=== PATIENT | female | born 1995 | race Hispanic/Latino ===

== ENCOUNTER → 2020-08-23 | Outpatient (CLI) | payer OTHER ==
[~2020-08-23] MED LIST: ISOVUE-370 76% 100ML VIAL As Ordered ONE
--- NOTE | 2020-08-23 13:29 | ROOPDOC ---
[facility] Report Of Operation Report of Operation DATE OF PROCEDURE: 08/23/20 REPRODUCTIVE ENDOCRINOLOGY HSG PROCEDURE NOTE PRE-PROCEDURE DIAGNOSIS: 1) Secondary infertility 2) Suspected endometriosis POST-PROCEDURE DIAGNOSIS: Same PHYSICIAN PERFORMING PROCEDURE: Quinton Alcantara DO CONSENT: The HSG procedure, indication, risks, and benefits were discussed with the patient and informed written consent was obtained. PATIENT COUNSELLED IN REGARDS TO HSG RISKS AND BENEFITS TO INCLUDE INFECTION, DISRUPTION OF , BLEEDING, AND PAIN. FINAL TIME OUT PERFORMED IMMEDIATELY PRIOR TO HSG. PROCEDURE: STERILE SPECULUM PLACED CERVIX CLEANSED WITH BETADINE TRIPLE SWAB TENACULUM UTILIZED (YES) HSG CATHETER PASSED, BALLOON INFLATED APPROX 75mL OF ISOVUE CONTRAST WAS INFUSED AP AND OBLIQUE IMAGES WERE OBTAINED PRELIMINARY FINDINGS: 1) UTERINE FINDINGS NORMAL 2) LEFT FALLOPIAN TUBE PATENT 3) RIGHT FALLOPIAN TUBE PATENT / hydrosalpinx noted PATIENT TOLERATED THE PROCEDURE WELL DISCHARGED TO HOME WITH PRECAUTIONS ANTIBIOTICS RECOMMENDED: YES, orderd in [place] COMPLICATIONS: NONE DISCHARGE INSTRUCTIONS GIVEN PATIENT TO F/U WITH ORDERING PROVIDER FOR FINAL IMPRESSION AND CLINICAL CORRELATION APPROX TIME: 10 MIN COUNSELLING [address] Carlin was present at the procedure. QUINTON ALCANTARA DO Aug 23, 2020 13:29
--- NOTE | 2020-08-23 17:38 | REP ---
INDICATION: Infertility COMPARISON: None. TECHNIQUE: The endometrium was cannulated and contrast was injected by the attending hot car charger . Fluoroscopic spot films were acquired by Lulu Hugo [facility], under the personal supervision of Dr. Godinez. Images reviewed prior with Dr. Godinez to dictation. FINDINGS: Fluoroscopy spot radiographs document filling of a normal endometrial cavity. There is normal isthmic and ampullary fallopian tube opacification, and bilateral tubal patency was documented. The right fallopian tube appears dilated and there was a delay in peritoneal spillage relative to the left. IMPRESSION: Bilateral tubal patency documented. Delayed spill on the right with hydrosalpinx. 1.2 minutes of fluoroscopy time was utilized for this procedure. Some fluoroscopic images are performed with last image hold technology. These images require no additional radiation. <Electronically signed by Lulu Hugo > 08/23/20 [id number] <Electronically signed by Janusz Godinez > 08/23/20 [id number]
== END ==
LOC: M RADPRO 11:45
PROVIDERS: ATTEND Obstetrics & Gynecology
DX: N97.9 Female infertility, unspecified (principal)
CPT/HCPCS: 58340; 74740; Q9967

== ENCOUNTER 2020-10-05 11:41 | Day surgery (SDC) | payer OTHER ==
[~2020-10-05] VITALS: Ht 165.1 cm; Wt 50.3 kg
[~2020-10-05 11:41] MED LIST changes: -ISOVUE-370 76% 100ML VIAL As Ordered ONE; +LIDOCAINE 1% MDV 20ML VIAL SQ PRN; +LR 1,000 ML IV ONE
[2020-10-05 12:12] LABS: HEMATOCRIT 44.7 % (36.0-47.0); HEMOGLOBIN 14.9 g/dl (12.0-15.5); MEAN CORPUSCULAR HEMOGLOBIN 28.5 pg (27.0-33.0); MEAN CORPUSCULAR HGB CONC 33.3 g/dl (32.0-36.5); MEAN CORPUSCULAR VOLUME 85.5 fl (80.0-96.0); PLATELET COUNT, AUTOMATED 232 10^3/uL (150-450); RED BLOOD COUNT 5.23 10^6/uL (4.00-5.40); WHITE BLOOD COUNT 5.2 10^3/uL (4.0-10.0)
[2020-10-05 12:32] LABS: HCG, SERUM QUALITATIVE NEGATIVE (NEGATIVE)
[2020-10-05] MEDS ORDERED: SCOPOLAMINE 1MG TRANSDERMAL PATCH As Ordered ONE (13:21)
[2020-10-05] MEDS ORDERED: SCOPOLAMINE 1MG TRANSDERMAL PATCH TOP ONE (13:30)
[2020-10-05] MEDS ORDERED: MIDAZOLAM INJ 2MG/2ML VIAL (J2250 PER 1MG) As Ordered ONE (13:57)
[2020-10-05] MEDS ORDERED: fentaNYL 100 MCG/2 ML INJECTION (J3010) As Ordered ONE ×2 (13:58→16:59)
[2020-10-05] MEDS ORDERED: LIDOCAINE 2% 100MG/5ML SDV (FOR ANES.) As Ordered ONE (13:59)
[2020-10-05] MEDS ORDERED: dexameTHASONE 4 MG/ML 1ML VIAL (J1100 PER 1MG) As Ordered ONE ×2 (13:59→16:17)
[2020-10-05] MEDS ORDERED: ROCURONIUM BROMIDE 50 MG/5 ML VIAL As Ordered ONE (14:00)
[2020-10-05] MEDS ORDERED: LEVONORGESTREL 52MG (MIRENA) IUD As Ordered ONE (14:58)
[2020-10-05] MEDS ORDERED: BUPIVACAINE HCL 0.5% 30 ML VIAL As Ordered ONE (14:58)
[2020-10-05] MEDS ORDERED: propofoL 200 MG/20 ML VIAL As Ordered ONE (15:02)
[2020-10-05] MEDS ORDERED: DOXYCYCLINE HYCLATE 100MG/10ML VIAL As Ordered ONE (15:20)
[2020-10-05] MEDS ORDERED: METOCLOPRAMIDE INJ 10MG/2ML VIAL (J2765 PER 1) As Ordered ONE (16:17)
[2020-10-05] MEDS ORDERED: KETOROLAC 60MG 2ML VIAL As Ordered ONE (16:17)
[2020-10-05] MEDS ORDERED: SUGAMMADEX SODIUM 500 MG/5 ML VIAL (BRIDION) As Ordered ONE (16:17)
[2020-10-05] MEDS ORDERED: ONDANSETRON 4MG/2ML VIAL As Ordered ONE ×2 (16:17→16:59)
[2020-10-05] MEDS ORDERED: oxyCODONE 5MG TAB As Ordered ONE (16:58)
[2020-10-05] MEDS: fentaNYL 100 MCG/2 ML INJECTION (J3010) IV PRN ×2 (17:14→17:26)
[2020-10-05] MEDS: oxyCODONE 5MG TAB PO PRN ×2 (17:14→17:43)
[2020-10-05] MEDS ORDERED: HYDROMORPHONE HCL 0.5 MG/ 0.5 ML SYRINGE (J1170 PER 1) IV PRN (17:30)
[2020-10-05] MEDS ORDERED: LR 1,000 ML IV SCH (17:30)
[2020-10-05] MEDS ORDERED: ONDANSETRON 4MG/2ML VIAL IV PRN (17:30)
[2020-10-05] MEDS ORDERED: METOCLOPRAMIDE INJ 10MG/2ML VIAL (J2765 PER 1) IV PRN (17:30)
[2020-10-05] MEDS ORDERED: PERCOCET 5MG/325MG TAB PO PRN (18:30)
[2020-10-05] MEDS ORDERED: KETOROLAC 30 MG/ML 1ML VIAL IV PRN (18:30)
[2020-10-05 18:40] VITALS: BP 116/54
--- NOTE | 2020-10-06 02:46 | RO ---
OPERATIVE NOTE DATE OF OPERATION: 10/05/2020 PREOPERATIVE DIAGNOSIS: Dysmenorrhea, dyspareunia, possible right hydrosalpinx, and desire for Mirena intrauterine device (IUD). POSTOPERATIVE DIAGNOSIS: Dysmenorrhea, dyspareunia, and desire for Mirena intrauterine device (IUD) in addition to pelvic adhesive disease. SURGEON: Boyd Hughes DO PROOF MACHINE OPERATOR SUPERVISOR: Naida Cordero DO ANESTHESIA: General. IV FLUIDS: 800 cc lactated Ringers URINE OUTPUT: 150 cc via Parker Catheter. ESTIMATED BLOOD LOSS: 3 cc ANTIBIOTICS: 100 mg IV doxycycline. COMPLICATIONS: None. OPERATIVE FINDINGS: Normal appearing uterus. Fallopian tubes normal in appearance, however, they were adhered to the pelvic sidewalls with filmy adhesions. Ovaries normal in appearance, but also adhered to the pelvic sidewalls. Inspection of the posterior and anterior cul-de-sacs revealed no gross evidence of endometriosis. The uterosacral ligaments were normal. The ovarian fossa had filmy adhesions, but were otherwise normal. No obvious evidence of endometriosis other than filmy adhesions throughout the pelvis. DETAILED PROCEDURE DESCRIPTION: The risks, benefits, and alternatives to procedure were reviewed with the patient and informed consent was obtained. The patient was taken to the operating room where general anesthesia was obtained without difficulty. The patient was then placed in the lithotomy position using gel padded Errol stirrups. An exam under anesthesia was then performed and was significant for a mobile 8 week sized anteverted uterus. The patient's arms were then gently tucked to her sides with padding. The patient was then prepped and draped in the usual sterile fashion. A surgical time-out was then performed and the patient's identity and planned procedure were verified with the operative team. A Parker catheter was placed first to drain the bladder. An acorn uterine manipulator was then placed as a means to manipulate the uterus. Gloves were then exchanged and attention was turned to the patient's abdomen where a 5 mm skin incision was made in the inferior aspect of the umbilicus after injection of Marcaine. A 5 mm trocar and sleeve were then carefully introduced into the peritoneal cavity under direct visualization at a 90 degree angle while tenting up the abdominal wall. Intraperitoneal placement was confirmed under direct visualization. Entry pressure was less than 5 mmHg. A pneumoperitoneum was obtained with several liters of Co2 gas. Upon entry into the peritoneal cavity, structures immediately below the incision were inspected and found to be free of injury. A survey of the patient's abdomen and pelvis was notable for a surgically absent appendix, normal liver, and normal gastric curve. The uterus was normal in appearance. The fallopian tubes were normal in appearance. There was no evidence of hydrosalpinx. However, the fallopian tubes had filmy adhesions to the pelvic sidewalls. The ovaries were normal in appearance, but also had filmy adhesions to the pelvic sidewall. The posterior cul-de-sac was inspected and was found to be normal. The anterior cul-de-sac was inspected and found to be normal. The uterosacral ligaments were inspected and found to be normal. The ovarian fossa were inspected and found to be normal. There was no gross evidence of endometriosis. The only abnormality were the filmy adhesions and they were taken down. Two additional 5 mm trocars, one in the left lower quadrant, one in the right lower quadrant were then placed under direct laparoscopic visualization after injection of Marcaine and skin incisions were made with the scalpel. Adhesiolysis was performed. Using atraumatic graspers and a blunt probe, the filmy adhesions from the fallopian tubes and ovaries to the pelvic sidewalls were released, thus freeing up the fallopian tubes and ovaries on both sides. The fallopian tubes were normal in appearance. There was no evidence of a hydrosalpinx on either side. Physiologic fluid in the patient's pelvis was removed with a suction rubber covering machine operator. Careful inspection of the patient's entire pelvis revealed no gross evidence of endometriosis. Adhesiolysis sites were inspected and found to be hemostatic. Attention was then turned below. The uterine manipulator was then removed from the uterus. A Mirena intrauterine device (IUD) was then opened on the field. The uterus was sounded to 8 cm. The Mirena intrauterine device (IUD) was then placed into the patient's uterus without difficulty per the sound installation worker's guidelines. The strings were then cut 3 cm from the cervical os. Inspection of the cervix revealed excellent hemostasis. Gloves were then exchanged and attention was turned back to the abdomen. There was no evidence of IUD perforation of the uterus upon laparoscopic inspection after its placement. The gas was then turned off and all Co2 was removed from the patient's abdomen. The patient was then given three manual breaths to assist with desulfation of the abdomen. All ports were then removed under direct visualization. There was no bleeding seen from the trocar sites. The skin incisions were then closed with 4-0 Monocryl suture and covered with Dermabond. The patient's Parker catheter was then removed and all instruments were then removed from the patient's vagina. At the completion of the case, the sponge, instrument, and needle counts were correct times two. The patient tolerated the procedure well. She was then cleansed and dried, taken out the lithotomy position, awaken from anesthesia and taken to the PACU in stable condition. MITCHELL
== END 2020-10-05 18:45 | disposition home or self-care (01) ==
LOC: M SDC 11:41
PROVIDERS: ATTEND Obstetrics & Gynecology
DX: N94.10 Unspecified dyspareunia (principal); K66.0 Peritoneal adhesions (postprocedural) (postinfection); Z88.0 Allergy status to penicillin
CPT/HCPCS: 36415; 58300; 58660; 84703; 85027; 86850; 86900; 86901; J1100; J1885; J2250; J2405; J2765; J3010; J7298

== ENCOUNTER 2020-10-17 17:35 | Emergency (ER) | payer OTHER, SELFPAY ==
[~2020-10-17] VITALS: Ht 165.1 cm; Wt 52.3 kg
[2020-10-17] MEDS ORDERED: MORPHINE 2 MG/ML 1ML VIAL (J2270) IV PRN (18:15)
--- NOTE | 2020-10-17 18:28 | REP ---
INDICATION: fall COMPARISON: None. TECHNIQUE: AP, lateral, bilateral oblique views of the left elbow. FINDINGS: No acute fracture or dislocation is appreciated. Joint spaces and surrounding soft tissues appear normal. Lateral view demonstrates normal positioning to the anterior and posterior fat pads without evidence for effusion/hemarthrosis. No subcutaneous emphysema or foreign body identified. IMPRESSION: NO ACUTE FRACTURE OR DISLOCATION. <Electronically signed by Layo Torre > 10/17/20 [id number]
[2020-10-17 18:33] LABS: BASO % 0.5 % (0.0-1.0); EOS # 0.1 10^3/uL (0.0-0.5); EOS % 0.8 % (0.0-3.0); HEMATOCRIT 43.2 % (36.0-47.0); HEMOGLOBIN 14.2 g/dl (12.0-15.5); LYMPH # 1.9 10^3/uL (1.5-5.0); LYMPH % 24.7 % (24.0-44.0); MEAN CORPUSCULAR HEMOGLOBIN 27.8 pg (27.0-33.0); MEAN CORPUSCULAR HGB CONC 32.9 g/dl (32.0-36.5); MEAN CORPUSCULAR VOLUME 84.5 fl (80.0-96.0); MONO # 0.3 10^3/uL (0.0-0.8); MONO % 4.1 % (0.0-5.0); NEUTROPHILS # 5.4 10^3/uL (1.5-8.5); NEUTROPHILS % 69.5 % (36.0-66.0); PLATELET COUNT, AUTOMATED 296 10^3/uL (150-450); RED BLOOD COUNT 5.11 10^6/uL (4.00-5.40); WHITE BLOOD COUNT 7.8 10^3/uL (4.0-10.0)
[2020-10-17 18:40] LABS: HCG, SERUM QUALITATIVE NEGATIVE (NEGATIVE)
[2020-10-17 18:42] LABS: BLOOD UREA NITROGEN 11 MG/DL (7-18); CALCIUM LEVEL 8.8 MG/DL (8.5-10.1); CARBON DIOXIDE LEVEL 24 MEQ/L (21-32); CHLORIDE LEVEL 105 MEQ/L (98-107); GLOMERULAR FILTRATION RATE > 60.0 (>60); GLUCOSE, FASTING 88 MG/DL (70-100); POTASSIUM SERUM 3.6 MEQ/L (3.5-5.1); SODIUM LEVEL 138 MEQ/L (136-145)
[2020-10-17] MEDS ORDERED: KETOROLAC 30 MG/ML 1ML VIAL IV ONE (18:45)
[2020-10-17] MEDS ORDERED: KETO10TAB PO (19:09)
[2020-10-17 20:25] VITALS: BP 119/66
== END 2020-10-17 20:27 | disposition home or self-care (01) ==
LOC: M ED 17:35
DX: S50.02XA Contusion of left elbow, initial encounter (principal); W19.XXXA Unspecified fall, initial encounter; Y92.89 Other specified places as the place of occurrence of the external cause; Y93.9 Activity, unspecified; Y99.9 Unspecified external cause status; Z88.0 Allergy status to penicillin
CPT/HCPCS: 73080; 80048; 84703; 85025; 96374; 96375; 99284; J1885; J2270